=== PATIENT | male | born 1950 | race Caucasian/White ===

== ENCOUNTER 2018-08-28 13:25 | Emergency (ER) | payer MEDICARE ==
[~2018-08-28] VITALS: Ht 175.3 cm; Wt 90.7 kg
--- OUTSIDE RECORDS SUMMARY | 2018-08-28 13:28 | XMS REPORT | Clinical Summary ---
Author Author [facility] Organization [place] Address Unknown Phone Unavailable Care Team Providers Care Video Game Tester Name Role Phone Deion Rosario MD PCP Allergies Comments Active Allergy Reactions Severity Noted Date Severe Vomitting Morphine GI High 01/20/2016 Intolerance Medications End Date Status Medication Sig Dispensed Refills Start Date Active cetirizine (ZyrTEC) 10 MG Take 10 mg by 0 tablet mouth daily as needed. Active PACERONE 400 mg tablet 0 8 Active amLODIPine (NORVASC) 10 0 mg tablet 8 Active atorvastatin (LIPITOR) 40 0 MG tablet 9 Active metoprolol tartrate 0 (LOPRESSOR) 25 mg tablet 9 Active BRILINTA 90 mg tablet 0 9 10/01/2017 Discontinued dextromethorphan-guaifene Take 1 tablet 28 each 0 sin (MUCINEX DM) 30-600 by mouth 2 6 mg tablet extended (two) times a release 12 hr day as needed (congestion post nasal drip). 10/01/2017 Discontinued cetirizine (ZyrTEC) 10 MG Take 10 mg by 0 tablet mouth daily. 09/03/2017 ciprofloxacin (CIPRO) 500 Take 1 tablet 20 tablet 0 MG tablet (500 mg 8 total) by mouth 2 (two) times a day for 10 days. 10/01/2017 Discontinued amLODIPine (NORVASC) 10 Take 1 tablet 30 tablet 0 201 mg tablet (10 mg total) 8 by mouth daily. 10/16/2017 Discontinued amLODIPine (NORVASC) 10 Take 1 tablet 90 tablet 0 mg tablet (10 mg total) 8 by mouth daily. 10/14/2017 Discontinued dextromethorphan-guaifene Take 1 tablet 0 sin (MUCINEX DM REGULAR) by mouth 2 30-600 mg tablet extended (two) times a release 12 hr day. 10/29/2017 Discontinued acetaminophen-codeine Take 1-2 30 tablet 0 (TYLENOL WITH CODEINE #3) tablets by 8 300-30 mg per tablet mouth every 6 (six) hours as needed for moderate pain for up to 30 days. 10/19/2017 ciprofloxacin HCl (CIPRO) Take 1 tablet 14 tablet 0 250 MG tablet (250 mg 8 total) by mouth 2 (two) times a day for 7 days. 11/11/2017 docusate sodium (COLACE) Take 1 60 capsule 0 100 MG capsule capsule (100 8 mg total) by mouth 2 (two) times a day for 30 days. 11/15/2017 amIODarone (PACERONE) 400 Take 1 tablet 30 tablet 0 MG tablet (400 mg 8 total) by mouth daily for 30 days. 11/15/2017 atorvastatin (LIPITOR) 40 Take 1 tablet 30 tablet 0 MG tablet (40 mg total) 8 by mouth nightly for 30 days. 11/15/2017 metoprolol tartrate Take 0.5 30 tablet 0 (LOPRESSOR) 25 mg tablet tablets (12.5 8 mg total) by mouth 2 (two) times a day for 30 days. 11/15/2017 ticagrelor (BRILINTA) 90 Take 1 tablet 60 tablet 0 mg tablet (90 mg total) 8 by mouth 2 (two) times a day for 30 days. 11/15/2017 aspirin (ECOTRIN) 81 MG Take 1 tablet 30 tablet 0 enteric coated tablet (81 mg total) 8 by mouth daily for 30 days. Active Problems Problem Noted Date Malignant neoplasm of ureteric orifice 10/18/2017 BPH without obstruction/lower urinary tract symptoms 10/18/2017 ST elevation myocardial infarction (STEMI) 10/14/2017 Atresia of external auditory canal 10/01/2017 Sensorineural hearing loss (SNHL) of right ear with restricted hearing of 10/01/2017 left ear Seasonal allergic rhinitis 10/01/2017 Bladder mass 09/25/2017 BPH with urinary obstruction 09/25/2017 Gross hematuria 08/24/2017 Essential hypertension 08/24/2017 Erectile dysfunction 08/24/2017 Glucosuria 08/24/2017 Proteinuria 08/24/2017 BMI 30.0-30.9,adult 08/24/2017 Chronic pain of left knee 02/24/2016 Cigarette nicotine dependence without complication 02/24/2016 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 Overview: RLE Resolved Problems Problem Noted Date Resolved Date Elevated blood pressure reading without diagnosis of hypertension 02/24/2016 10/01/2017 Encounters Care Team Description Date Type Specialty Malachi Malcolm MD Malignant neoplasm of ureteric orifice (HCC) (Primary Dx); BPH without obstruction/lower urinary tract symptoms; Cigarette nicotine dependence without complication 07/17/2018 Office Visit Urology Malachi Malcolm MD Malignant neoplasm of ureteric orifice (HCC) (Primary Dx); BPH with urinary obstruction; Gross hematuria; Bladder mass 01/16/2018 Office Visit Urology Deion Rosario MD 01/14/2018 Telephone Family Medicine Deion Rosario MD Bladder mass (Primary Dx); Gross hematuria 01/10/2018 Telephone Family Medicine Malachi Malcolm MD 01/10/2018 Telephone Urology Deion Rosario MD 01/05/2018 Orders Only Family Deion Thompson MD 01/04/2018 Telephone Family Deion Thompson MD 11/06/2017 Telephone Family Medicine Deion Rosario MD ST elevation myocardial infarction involving right coronary artery (Primary Dx); Essential hypertension; Other fatigue; HUBBARD (dyspnea on exertion); Anxiety; Anemia, unspecified type; Hypocalcemia; BMI 30.0-30.9,adult 10/29/2017 Office Visit Family Medicine Malachi Malcolm MD Malignant neoplasm of ureteric orifice (Primary Dx); BPH without obstruction/lower urinary tract symptoms 10/18/2017 Office Visit Urology Kasandra Ta MA 10/15/2017 Telephone Urology Armani Pruitt MD Cv left heart cath w lv gram cors [83306 (CPT)] 10/14/2017 Surgery Procedural Cardiology Emre Galvan MD Teq[place]imuah, Remy, DO ST elevation myocardial infarction (STEMI), unspecified artery (Primary Dx); Chest pain, unspecified type; ST elevation myocardial infarction involving right coronary artery 10/14/2017 Hospital Intensive Care - Encounter 10/16/2017 Malachi Malcolm MD CYSTOSCOPY, WITH TURBT 10/12/2017 Surgery General Surgery Andrea De La Cruz MD 10/12/2017 Anesthesia General Surgery Event Malachi Malcolm MD 10/12/2017 Hospital General Surgery Encounter Malachi Malcolm MD 10/11/2017 Telephone Urology Malachi Malcolm MD 10/09/2017 Hospital Radiology Encounter Malachi Malcolm MD Preop testing (Primary Dx) 10/09/2017 Pre-Admit Pre-Admission Testing Testing Appointment Malachi Malcolm MD 10/09/2017 Telephone Urology Malachi Malcolm MD 10/08/2017 Telephone Urology Deion Rosario MD Routine check-up (Primary Dx); Essential hypertension; Bladder mass; Cigarette nicotine dependence without complication; Post-polio limb muscle weakness; Chronic pain of left knee; Gross hematuria; Erectile dysfunction, unspecified erectile dysfunction type; BPH with urinary obstruction; BMI 30.0-30.9,adult; Seasonal allergic rhinitis due to other allergic trigger, unspecified chronicity; Sensorineural hearing loss (SNHL) of right ear with restricted hearing of left ear; Atresia of external auditory canal 10/01/2017 Office Visit Family Medicine Malachi Malcolm MD 09/28/2017 Telephone Urology Deion Rosario MD Rodriguez, Gabriel, MD Erectile dysfunction, unspecified erectile dysfunction type (Primary Dx); Bladder mass; Gross hematuria; BPH with urinary obstruction 09/25/2017 Office Visit Urology Deion Rosario MD Gross hematuria 09/07/2017 Hospital Radiology Encounter Deion Rosario MD Bladder mass (Primary Dx); Gross hematuria 09/07/2017 Orders Only Family Medicine Alessandra Jaramillo MA 09/05/2017 Telephone Internal Medicine Janie Rascon MA 08/27/2017 Telephone Family Medicine after 08/27/2017 Immunizations Name Dates Previously Given Next Due FLUZONE HIGH-DOSE PF 01/20/2016 Family History Medical History Relation Name Comments No Known Problems Father No Known Problems Mother Relation Name Status Comments Father Mother Social History Date Tobacco Use Types Packs/Day Years Used Current Every Day Smoker Cigarettes 1 20 Smokeless Tobacco: Never Used Tobacco Cessation: Ready to Quit: No Comments: had quit for 10 yrs Alcohol Use Drinks/Week oz/Week Comments Yes beer socially Sex Assigned at Date Recorded Not on file Industry Job Start Date Occupation Not on file Not on file Not on file Travel End Travel History Travel Start No recent travel history available. Last Filed Vital Signs Time Taken Vital Sign Reading 10/29/2017 2:04 PM CDT Blood Pressure 118/68 10/29/2017 2:04 PM CDT Pulse 69 10/29/2017 2:04 PM CDT Temperature 36.3 C (97.3 F) 10/29/2017 2:04 PM CDT Respiratory Rate 18 10/29/2017 2:04 PM CDT Oxygen Saturation 99% - Inhaled Oxygen - Concentration 10/29/2017 2:04 PM CDT Weight 93 kg (205 lb) 10/29/2017 2:04 PM CDT Height 175.3 cm (5' 9") 10/29/2017 2:04 PM CDT Body Mass Index 30.27 Plan of Treatment Care Team Description Date Type Specialty Malachi Malcolm MD [address] [facility] [address] [place], [place] [id number] 10/22/2018 Office Visit Urology Health Maintenance Due Date Last Done Comments COLON CANCER SCREENING 1999 SHINGLES VACCINES (#1) 1999 65+ PNEUMOCOCCAL VACCINE 2014 (1 of 2 - PCV13) PNEUMOCOCCAL 2014 POLYSACCHARIDE VACCINE AGE 65 AND OVER INFLUENZA VACCINE 11/07/2018 01/20/2016, 01/20/2016 Implants Device Identifier Shelf Expiration Date Model / Serial / Lot Implanted Type Area Manufactur er 07/07/2018 [id number] / / [id number] Device Vasclr Clsr Vasoactive Cardiovasc N/A: N/A Intstnl Peptd 6fr Angio-Seal - ular [id number] Implants Implanted: Qty: 1 on 10/14/2017 by Armani Pruitt MD 06/05/2018 [id number] / / [id number] Stent System 4.0 X 18mm Resolute Coronary Left: Coronary [employer] Rx Coronary - [id number] Stents [facility] - Implanted: Qty: 1 on 10/14/2017 by CARDIAC Armani Pruitt MD RYHTYM MGMT Procedures Comments Procedure Name Priority Date/Time Associated Diagnosis ZZESTIMATED GFR Routine 10/16/2017 5:15 AM CDT HEMOGLOBIN A1C Routine 10/16/2017 5:15 AM CDT THYROID STIMULATING Routine 10/16/2017 HORMONE 5:15 AM CDT T4, FREE Routine 10/16/2017 5:15 AM CDT PHOSPHORUS LEVEL Routine 10/16/2017 5:15 AM CDT MAGNESIUM LEVEL Routine 10/16/2017 5:15 AM CDT BASIC METABOLIC PANEL Routine 10/16/2017 5:15 AM CDT HC COMPLETE BLD COUNT Routine 10/16/2017 W/AUTO DIFF 5:15 AM CDT ECHOCARDIOGRAM 2D Routine 10/15/2017 COMPLETE W MMODE SPECTRAL 9:10 AM CDT COLOR DOPPLER ([id number]) ZZESTIMATED GFR Timed 10/15/2017 4:10 AM CDT COMPREHENSIVE METABOLIC Timed 10/15/2017 PANEL 4:10 AM CDT HC COMPLETE BLD COUNT Timed 10/15/2017 W/AUTO DIFF 4:10 AM CDT TROPONIN Timed 10/15/2017 4:10 AM CDT LACTIC ACID LEVEL, SEPSIS Timed 10/15/2017 - NOW AND REPEAT 2X EVERY 4:10 AM CDT 3 HOURS PARTIAL THROMBOPLASTIN Routine 10/15/2017 TIME (PTT) 4:10 AM CDT PROTHROMBIN TIME WITH INR Routine 10/15/2017 4:10 AM CDT URINALYSIS SCREEN AND STAT 10/14/2017 MICROSCOPY, WITH REFLEX 11:15 PM CDT TO CULTURE GRAM STAIN STAT 10/14/2017 11:15 PM CDT URINE CULTURE STAT 10/14/2017 11:15 PM CDT ZZESTIMATED GFR Routine 10/14/2017 10:45 PM CDT HC COMPLETE BLD COUNT Routine 10/14/2017 W/AUTO DIFF 10:45 PM CDT BASIC METABOLIC PANEL Routine 10/14/2017 10:45 PM CDT TROPONIN Timed 10/14/2017 10:45 PM CDT LACTIC ACID LEVEL, SEPSIS Timed 10/14/2017 - NOW AND REPEAT 2X EVERY 10:45 PM CDT 3 HOURS CV PCI STENT Routine 10/14/2017 9:12 PM CDT CV SELECTIVE CORONARY Routine 10/14/2017 ANGIOGRAPHY 9:12 PM CDT ACTIVATED CLOTTING TIME Routine 10/14/2017 8:12 PM CDT XR CHEST 1 VW PORTABLE STAT 10/14/2017 7:09 PM CDT TYPE AND SCREEN Routine 10/14/2017 6:50 PM CDT ZZESTIMATED GFR STAT 10/14/2017 6:47 PM CDT LIPID PANEL STAT 10/14/2017 6:47 PM CDT HEMOGLOBIN A1C Routine 10/14/2017 6:47 PM CDT CREATINE KINASE, TOTAL STAT 10/14/2017 (CPK) 6:47 PM CDT B NATRIURETIC PEPTIDE STAT 10/14/2017 6:47 PM CDT TROPONIN STAT 10/14/2017 6:47 PM CDT LACTIC ACID LEVEL, SEPSIS STAT 10/14/2017 - NOW AND REPEAT 2X EVERY 6:47 PM CDT 3 HOURS COMPREHENSIVE METABOLIC STAT 10/14/2017 PANEL 6:47 PM CDT MAGNESIUM LEVEL STAT 10/14/2017 6:47 PM CDT PHOSPHORUS LEVEL STAT 10/14/2017 6:47 PM CDT HC COMPLETE BLD COUNT STAT 10/14/2017 W/AUTO DIFF 6:47 PM CDT ECG 12-LEAD STAT 10/14/2017 6:40 PM CDT ECG ED PRELIMINARY Routine 10/14/2017 INTERPRETATION 6:39 PM CDT ECG ED PRELIMINARY Routine 10/14/2017 INTERPRETATION 6:39 PM CDT MI CRITICAL CARE, E/M Routine 10/14/2017 30-74 MINUTES 6:39 PM CDT ECG 12-LEAD STAT 10/14/2017 6:28 PM CDT SURGICAL PATHOLOGY Routine 10/12/2017 REQUEST 11:38 AM CDT CYSTOSCOPY, WITH TURBT 10/12/2017 Malignant tumor of 11:20 AM CDT trigone of urinary bladder MI AN ELECTIVE Routine 10/12/2017 SUPRAGLOTTIC AIRWAY 11:09 AM CDT Procedure Note - Andrea De La Cruz MD - 10/12/2017 11:09 AM CDT Airway Performed by: ANDREA DE LA CRUZ Authorized by: ANDREA DE LA CRUZ Location: OR Urgency: Elective Difficult Airway: No Anesthesio logist: ANDREA DE LA CRUZ Performed by: anesthesio logist Preoxygena tomasa with 100% O2: Yes C-spine Precaution s Maintained Throughout : Yes Mask Ventilatio n: Assisted mask Final Airway Type: Supraglott ic airway Final LMA: Classic LMA Size: 5 Number of Attempts at Approach: 1 XR CHEST 2 VW Routine 10/09/2017 Preop testing 10:08 AM CDT HC COMPLETE BLD COUNT Routine 10/09/2017 Preop testing W/AUTO DIFF 9:35 AM CDT ECG 12-LEAD Routine 10/01/2017 Essential hypertension 9:08 AM CDT MICROSCOPIC EXAMINATION Routine 09/25/2017 3:16 PM CDT URINALYSIS, COMPLETE, Routine 09/25/2017 Bladder mass WITH REFLEX TO CULTURE 3:16 PM CDT Gross hematuria URINE CULTURE, Routine 09/25/2017 COMPREHENSIVE (GELY 3:16 PM CDT HIST) CT RENAL STONE PROTOCOL Routine 09/07/2017 Gross hematuria 9:08 AM CDT TESTOSTERONE LEVEL, FREE Routine 08/29/2017 Erectile dysfunction, AND TOTAL, MALE 7:49 AM CDT unspecified erectile dysfunction type TSH REFLEX TO T4F Routine 08/29/2017 Erectile dysfunction, 7:49 AM CDT unspecified erectile dysfunction type PROSTATE SPECIFIC ANTIGEN Routine 08/29/2017 Gross hematuria 7:49 AM CDT LIPID PANEL Routine 08/29/2017 Essential hypertension 7:49 AM CDT COMPREHENSIVE METABOLIC Routine 08/29/2017 Gross hematuria PANEL 7:49 AM CDT CBC WITH PLATELET AND Routine 08/29/2017 Gross hematuria DIFFERENTIAL 7:49 AM CDT after 08/27/2017 Results * Estimated GFR (10/16/2017 5:15 AM CDT) Only the most recent of 4 results within the time period is included. GFR Non Af Amer 66 mL/min/1.73 m2 [facility] DEPARTMENT OF PATHOLOGY AND GENOMIC MEDICINE GFR Af Amer 81 mL/min/1.73 m2 [facility] Comment: DEPARTMENT OF Chronic kidney disease: <60 PATHOLOGY AND mL/min/1.73m2 GENOMIC Kidney failure: <15 MEDICINE mL/min/1.73m2 The estimated GFR is calculated from the IDMS-traceable Modification of Diet in Renal Disease Equation. The accuracy of the calculation is poor when the creatinine is normal. Calculated values >90 mL/min/1.73m2 are not reported. This equation has not been validated in children (<18 years), women, the elderly (>70 years), or ethnic groups other than Caucasians and Americans. Specimen Plasma specimen Performing Organization Address City/State/Zipcode Phone Number [facility] [address] [place] [address] PATHOLOGY AND GENOMIC MEDICINE * CBC with platelet and differential (10/16/2017 5:15 AM CDT) Only the most recent of 6 results within the time period is included. WBC 13.07 (H) 4.50 - 11.00 k/uL [facility] DEPARTMENT OF PATHOLOGY AND GENOMIC MEDICINE RBC 2.98 (L) 4.40 - 6.00 m/uL [facility] DEPARTMENT PATHOLOGY AND GENOMIC MEDICINE HGB 8.7 (L) 14.0 - 18.0 g/dL [facility] DEPARTMENT OF PATHOLOGY AND GENOMIC MEDICINE HCT 26.4 (L) 41.0 - 51.0 % [facility] DEPARTMENT OF PATHOLOGY AND GENOMIC MEDICINE MCV 88.6 82.0 - 100.0 fL [facility] DEPARTMENT OF PATHOLOGY AND GENOMIC MEDICINE MCH 29.2 27.0 - 34.0 pg [facility] DEPARTMENT OF PATHOLOGY AND GENOMIC MEDICINE MCHC 33.0 31.0 - 37.0 g/dL [facility] DEPARTMENT OF PATHOLOGY AND GENOMIC MEDICINE RDW - SD 44.0 37.0 - 55.0 fL [facility] DEPARTMENT OF PATHOLOGY AND GENOMIC MEDICINE MPV 9.9 8.8 - 13.2 fL [facility] DEPARTMENT OF PATHOLOGY AND GENOMIC MEDICINE Platelet count 333 150 - 400 k/uL [facility] DEPARTMENT OF PATHOLOGY AND GENOMIC MEDICINE Nucleated RBC 0.00 /100 WBC [facility] DEPARTMENT OF PATHOLOGY AND GENOMIC MEDICINE Neutrophils 71.1 (H) 39.0 - 69.0 % [facility] DEPARTMENT OF PATHOLOGY AND GENOMIC MEDICINE Lymphocytes 16.8 (L) 25.0 - 45.0 % [facility] DEPARTMENT OF PATHOLOGY AND GENOMIC MEDICINE Monocytes 9.5 0.0 - 10.0 % [facility] DEPARTMENT OF PATHOLOGY AND GENOMIC MEDICINE Eosinophils 1.5 0.0 - 5.0 % [facility] DEPARTMENT OF PATHOLOGY AND GENOMIC MEDICINE Basophils 0.6 0.0 - 1.0 % [facility] DEPARTMENT OF PATHOLOGY AND GENOMIC MEDICINE Specimen Blood Performing Organization Address City/State/Zipcode Phone Number [address] [place] [address] PATHOLOGY AND GENOMIC MEDICINE * Thyroid stimulating hormone (10/16/2017 5:15 AM CDT) TSH 2.21 0.27 - 4.20 uIU/mL [facility] DEPARTMENT OF PATHOLOGY AND GENOMIC MEDICINE Specimen Plasma specimen Performing Organization Address [facility] Phone Number [address] [place] [address] PATHOLOGY AND GENOMIC MEDICINE * T4, free (10/16/2017 5:15 AM CDT) T4, free 1.42 0.90 - 1.70 ng/dL [facility] DEPARTMENT OF PATHOLOGY AND GENOMIC MEDICINE Specimen Plasma specimen Performing Organization Address [facility] Phone Number [address] [place] [address] PATHOLOGY AND GENOMIC MEDICINE * Phosphorus level (10/16/2017 5:15 AM CDT) Only the most recent of 2 results within the time period is included. Phosphorus 2.3 (L) 2.4 - 4.5 mg/dL [facility] DEPARTMENT OF PATHOLOGY AND GENOMIC MEDICINE Specimen Plasma specimen Performing Organization Address [facility] Phone Number [address] [place] [address] PATHOLOGY AND GENOMIC MEDICINE * Magnesium level (10/16/2017 5:15 AM CDT) Only the most recent of 2 results within the time period is included. Magnesium 2.2 1.6 - 2.4 mg/dL [facility] DEPARTMENT OF PATHOLOGY AND GENOMIC MEDICINE Specimen Plasma specimen Performing Organization Address [facility] Phone Number [address] [place] [address] PATHOLOGY AND GENOMIC MEDICINE * Hemoglobin A1c (10/16/2017 5:15 AM CDT) Only the most recent of 2 results within the time period is included. Hemoglobin A1C 4.4 4.0 - 6.0 % [facility] Comment: DEPARTMENT OF PATHOLOGY AND GENOMIC Less than 6% - MEDICINE Goal of therapy for Type II Diabetes Less than 7%-Goal of therapy for Type I Diabetes Less than 8%-Accepta ble control for Type I or Type II Diabetes Greater than 8%-Unacceptabl e control; action indicated. (ADA94) Specimen Blood Performing Organization Address [facility]/[employer] Phone Number [address] [place] [address] PATHOLOGY [facility] * Basic metabolic panel (10/16/2017 5:15 AM CDT) Only the most recent of 2 results within the time period is included. Sodium 140 135 - 148 mEq/L [facility] DEPARTMENT OF PATHOLOGY AND [employer] MEDICINE Potassium 4.1 3.5 - 5.0 mEq/L [facility] DEPARTMENT OF PATHOLOGY AND [employer] MEDICINE Chloride 108 98 - 112 mEq/L [facility] DEPARTMENT OF PATHOLOGY AND [employer] MEDICINE CO2 21 (L) 24 - 31 mEq/L [facility] DEPARTMENT OF PATHOLOGY [facility] [employer] [facility] Anion gap 11@ANIO 7 - 15 mEq/L [facility] DEPARTMENT OF PATHOLOGY AND [employer] MEDICINE BUN 9 8 - 23 mg/dL [facility] DEPARTMENT OF PATHOLOGY AND [employer] MEDICINE Creatinine 1.1 0.7 - 1.2 mg/dL [facility] OF PATHOLOGY AND [employer] [facility] Glucose 89 65 - 99 mg/dL [facility] OF PATHOLOGY AND [employer] [facility] Calcium 8.3 (L) 8.8 - 10.2 mg/dL [facility] DEPARTMENT OF PATHOLOGY AND [employer] [facility] Specimen Plasma specimen Performing Organization Address [facility] Phone Number [address] [place] [phone] PATHOLOGY [facility] [employer] [facility] * Echocardiogram complete w contrast and 3D if needed (10/15/2017 9:10 AM CDT) BSA 2.12 m2 [facility] AoV Area, Vmax 2.26 cm2 [facility] AoV Area, VTI 2.51 cm2 [facility] AoV Mean PG 4.68 mmHg [facility] AoV Peak PG 10.22 mmHg [facility] AoV Vmax 1.60 m/s [facility] AoV VTI 0.29 m [facility] IVS,d 1.18 cm [facility] LV,d 4.77 cm [facility] LV EF,A2C 53.75 % [facility] LV EF,A4C 51.07 % [facility] LV EF,BP 52.78 % [facility] [place],d A2C 9.04 cm [facility] [place],d A4C 9.56 cm [facility] [place],s A2C 7.43 cm [facility] [place],s A4C 7.69 cm [facility] LV,s 3.50 cm [facility] LV SV,A2C 81.58 % [facility] LV SV,A4C 76.41 % [facility] LV Vol,d A2C 151.76 mL [facility] LV Vol,d A4C 149.61 ml [facility] LV Vol,d BP 154.25 ml [facility] LV Vol,s A2C 70.18 mL [facility] LV Vol,s A4C 73.20 ml [facility] LV Vol,s BP 72.84 nl [facility] LVOT Diam,S 2.00 cm [facility] LVOT Vmax 1.15 m/s [facility] LVOT VTI 0.24 m [facility] LVPWD,d 1.04 cm [facility] MV E A ratio 0.78 mmHg [facility] MR Vmax 4.10 m/s [facility] MR peak grad 67.30 mmHg [facility] E wave 227.63 msec [facility] decelartion time MV Peak A Gerry 1.02 m/s [facility] MV valve area p 3.27 cm2 [facility] 1/2 method MV Peak E Gerry 0.80 m/s [facility] MV stenosis 67.30 ms [facility] pressure 1/2 time AV LVOT peak 5.30 mmHg [facility] gradient LV SYS VOL 50.82 ml [facility] LV LAND VOL 105.89 ml [facility] LV SV Teich 2D 55.06 ml [facility] LVOT SI 35.62 ml/m2 [facility] AoV Cusp sep 1.55 [facility] AoV Vmn 0.99 [facility] IVS s 2D 1.49 [facility] LA Ao Ratio 1.06 [facility] Mmode LVOT Vmn 0.69 [facility] Pt Size 175.26 [facility] Pt Wt 92.08 [facility] PV AT 138.41 msec [facility] LVOT mean grad 2.24 mmHg [facility] LVPW s PLAX 1.51 cm [facility] MV Decel slope 3.49 m/s2 [facility] Velocity Ratio 0.72 m/s [facility] (V1/V2) EF 52.01 % [facility] E/A ratio 0.78 [facility] LVOT area 3.14 cm2 [facility] LV Systolic 33.10 mL/m2 [facility] Volume Index LV Diastolic 71.58 mL/m2 [facility] Volume Index LA volume 106.0 cm3 [facility] LA Volume Index 50.00 mL/m2 [facility] LA Area d A4C 61 cm2 [facility] LA diam s 3.40 cm [facility] Aortic Root 3.24 cm [facility] D E excurs 1.80 [facility] E f slope 0.05 [facility] E prime lat 0.11 [facility] E katie sept 0.09 [facility] PV acc T slope 6.30 [facility] IVC diam 16.50 cm [facility] Specimen Narrative Performed At [facility] The left ventricle chamber size is normal. Left Ventricular ejection fraction is 55 - 60%. No pericardial effusion Spectral Doppler shows impaired relaxation pattern of left ventricular diastolic filling. Regional wall motion abn noted. Performing Organization Address City/[facility]/Zipcode Phone Number [facility] [address] [place] [address] * Lactic acid level, SEPSIS - Now and repeat 2x every 3 hours (10/15/2017 4:10 AM CDT) Only the most recent of 3 results within the time period is included. Lactic acid 0.8 0.5 - 2.2 mmol/L [facility] DEPARTMENT OF PATHOLOGY AND GENOMIC MEDICINE Specimen Plasma specimen Performing Organization Address City/[facility]/Zipcode Phone Number [facility] [place] [address] [place] [address] PATHOLOGY AND GENOMIC MEDICINE * Troponin (10/15/2017 4:10 AM CDT) Only the most recent of 3 results within the time period is included. Troponin 37.410 (HH) 0.000 - 0.300 ng/mL [facility] Comment: DEPARTMENT OF 0.30 - 1.49 PATHOLOGY AND ng/mlMay GENOMIC indicate increased risk of MEDICINE acute coronary syndrome. >=1.5 ng/ml Consistent with acute myocardial infarction. The diagnostic value of a single normal or non-diagnostic result is questionable.Serial samples at 2-6 hour intervals are required to rule out acute myocardial injury. Results called to and read back by July RN/ICU (name/location) at 0504 (date/time) by __surendra. Specimen Plasma specimen Performing Organization Address [facility]/[employer] Phone Number [facility] DEPARTMENT [address] [place] [address] PATHOLOGY AND GENOMIC MEDICINE * Partial thromboplastin time, activated (10/15/2017 4:10 AM CDT) Pathologist [facility] PTT 25.8 23.0 - 36.0 sec [facility] Comment: DEPARTMENT OF PTT therapeutic range for PATHOLOGY AND unfractionated heparin is GENOMIC 61.0-112.0 seconds which MEDICINE corresponds to Anti-Xa 0.3-0.7 U/ml. Specimen Blood Performing Organization Address [facility] Phone Number [address] [place] [address] PATHOLOGY AND GENOMIC MEDICINE * Prothrombin time with INR (10/15/2017 4:10 AM CDT) Pathologist [facility] Prothrombin 13.6 12.0 - 15.0 sec [facility] time DEPARTMENT OF PATHOLOGY AND GENOMIC MEDICINE INR 1.0 [facility] Comment: DEPARTMENT OF The International Normalized PATHOLOGY AND Ratio (INR) is a therapeutic GENOMIC monitoring tool for patients MEDICINE who are stable on oral anticoagulant therapy. An INR of 2.0-3.0 is suggested for deep vein thrombosis/pulmonary embolism. Specimen Blood Performing Organization Address [facility] Phone Number [facility] DEPARTMENT [address] [place] [address] PATHOLOGY AND GENOMIC MEDICINE * Comprehensive metabolic panel (10/15/2017 4:10 AM CDT) Only the most recent of 3 results within the time period is included. Pathologist [facility] Sodium 140 135 - 148 mEq/L [facility] DEPARTMENT OF PATHOLOGY AND GENOMIC MEDICINE Potassium 3.3 (L) 3.5 - 5.0 mEq/L [facility] DEPARTMENT OF PATHOLOGY AND GENOMIC MEDICINE Chloride 107 98 - 112 mEq/L [facility] DEPARTMENT OF PATHOLOGY AND GENOMIC MEDICINE CO2 23 (L) 24 - 31 mEq/L [facility] DEPARTMENT OF PATHOLOGY AND GENOMIC MEDICINE Anion gap 10@ANIO 7 - 15 mEq/L [facility] DEPARTMENT OF PATHOLOGY AND GENOMIC MEDICINE BUN 8 8 - 23 mg/dL [facility] DEPARTMENT OF PATHOLOGY AND GENOMIC MEDICINE Creatinine 0.9 0.7 - 1.2 mg/dL [facility] DEPARTMENT OF PATHOLOGY AND GENOMIC MEDICINE Glucose 98 65 - 99 mg/dL [facility] DEPARTMENT OF PATHOLOGY AND GENOMIC MEDICINE Calcium 8.2 (L) 8.8 - 10.2 mg/dL [facility] DEPARTMENT OF PATHOLOGY AND GENOMIC MEDICINE Protein 5.6 (L) 6.3 - 8.3 g/dL [facility] Comment: DEPARTMENT OF [place] PATHOLOGY AND 4.6-7.0 g/dL [place] [address] MEDICINE week 4.4-7.6 g/dL 7 months-1year 5.1-7.3 g/dL 1-2 years5.6-7 .5 g/dL >3 years6.0-8 .0 g/dL 18-150 6.3-8.3 g/dL Albumin 3.6 3.5 - 5.0 g/dL [facility] DEPARTMENT OF PATHOLOGY AND GENOMIC MEDICINE A/G ratio 1.8 0.7 - 3.8 [facility] DEPARTMENT OF PATHOLOGY AND GENOMIC MEDICINE Alkaline 76 40 - 129 U/L [facility] phosphatase DEPARTMENT OF PATHOLOGY AND GENOMIC MEDICINE AST 83 (H) 10 - 50 U/L [facility] DEPARTMENT OF PATHOLOGY AND GENOMIC MEDICINE ALT 17 5 - 50 U/L [facility] DEPARTMENT OF PATHOLOGY AND GENOMIC MEDICINE Total bilirubin 0.4 0.0 - 1.2 mg/dL [facility] DEPARTMENT OF PATHOLOGY AND GENOMIC MEDICINE Specimen Plasma specimen Performing Organization Address City/State/Zipcode Phone [place] [facility] [place] [place] [address] [place] [address] PATHOLOGY AND GENOMIC MEDICINE * Urinalysis screen and microscopy, with reflex to culture (10/14/2017 11:15 PM CDT) Specimen site Clean catch [facility] DEPARTMENT OF PATHOLOGY AND GENOMIC MEDICINE Color, UA Straw [facility] DEPARTMENT OF PATHOLOGY AND GENOMIC MEDICINE Appearance, UA Clear [facility] DEPARTMENT OF PATHOLOGY AND GENOMIC MEDICINE Specific 1.030 1.001 - 1.035 [facility] gravity, DEPARTMENT OF PATHOLOGY AND GENOMIC MEDICINE pH, UA 7.0 5.0 - 8.5 [facility] DEPARTMENT OF PATHOLOGY AND GENOMIC MEDICINE Protein, UA Negative Negative [facility] DEPARTMENT OF PATHOLOGY AND GENOMIC MEDICINE Glucose, UA Negative Negative [facility] DEPARTMENT OF PATHOLOGY AND GENOMIC MEDICINE Ketones, UA Negative Negative [facility] DEPARTMENT OF PATHOLOGY AND GENOMIC MEDICINE Bilirubin, UA Negative Negative [facility] DEPARTMENT OF PATHOLOGY AND GENOMIC MEDICINE Blood, UA Moderate (A) Negative [facility] DEPARTMENT OF PATHOLOGY AND GENOMIC MEDICINE Nitrite, UA Negative Negative [facility] DEPARTMENT OF PATHOLOGY AND GENOMIC MEDICINE Urobilinogen, Negative <2.0 [facility] DEPARTMENT OF PATHOLOGY AND GENOMIC MEDICINE Leukocyte Small (A) Negative [facility] esterase, UA DEPARTMENT OF PATHOLOGY AND GENOMIC MEDICINE WBC, UA 6-10 (H) 0 - 1 /HPF [facility] DEPARTMENT OF PATHOLOGY AND GENOMIC MEDICINE RBC, UA 11-20 (H) 0 - 5 /HPF [facility] DEPARTMENT OF PATHOLOGY AND GENOMIC MEDICINE Bacteria, UA None seen None seen [facility] DEPARTMENT OF PATHOLOGY AND GENOMIC MEDICINE Yeast, UA None seen [facility] DEPARTMENT OF PATHOLOGY AND GENOMIC MEDICINE Yeast with None seen [facility] pseudohyphae, DEPARTMENT OF PATHOLOGY AND GENOMIC MEDICINE Specimen Urine Performing Organization Address City/[facility]/Zipcode Phone Number [facility] DEPARTMENT [id number] [place] [address] [place] [address] PATHOLOGY AND GENOMIC MEDICINE * Gram stain (10/14/2017 11:15 PM CDT) Gram stain No WBC's or organisms seen. [facility] DEPARTMENT result Comment: OF PATHOLOGY Specimen Information AND GENOMIC Specimen Source: Urine MEDICINE Specimen Site: Clean catch Specimen Urine Performing Organization Address City/[facility]/Zipcode Phone Number [facility] DEPARTMENT OF [address] [place] [address] PATHOLOGY AND GENOMIC MEDICINE * Urine culture (10/14/2017 11:15 PM CDT) Urine culture No growth after 2 days. 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 Procedure Details After informed consent patient was brought in to the mason tender restoration labor and was prepped and draped in a sterile fashion. Under moderate sedation and under local anesthesia a 6F sheath was placed into the common femoral artery using modified Seldinger technique. A 6F JL4 diagnostic catheter was advanced over a J wire and LM was engaged. Serial angiogram were performed. The JL4 was removed over a J-wire. A 6F 3 DRC guide catheter catheter was advanced and RCA was engaged. Serial coronary angiograms were performed.The 3DRC catheter was removed over a J wire. As no culprit lesion was found of the decided to go back with the JL4 of guide catheter and redo in examination of the left system with serial angiograms. The JL 46 Iranian guide catheter was advanced over a J-wire, left main was engaged and serial coronary angiograms were performed. Findings: LM: Short. Normal LAD:Large. Normal. Small diagonals LCX: Large, Co dominant. Continues as a very large OM1. Proximal OM had luminal irregularities. Examination in multiple views showed an ulcerated lesion diffuse 40 % with focal 50% RCA: Co -Dominanat, normal. Gives rise to small PDA Intervention: During the initial angiogram there was no culprit lesion was identified. All the major muscles had VAL-3 flow. Hence the code STEMI was canceled. Subsequently the exam in the proximal Tim lesion in multiple views. And there was a strong possibility was an ulcerated lesion. And this ulcerated lesion potentially had a thrombus which subsequently resolved. Hence the is admitted to go ahead and stent this particular lesion. After adequate anticoagulation with heparin, of the advanced of short intuition wire into the circumflex through the Tim 1 into the distal Tim. Of the predilated the lesion with 2.5 1 2 followed by 3 mm 1 2 balloon lungs. The balloon was dilated to maximum of 3.3mm. Following this the advanced Medtronic RONYXdrug-eluting stent 4 mm 1 8 mm and deployed at at the lesion extending into the LCX arteryat nominal pressure. Postdilatation of the lesion was done with the stent balloon itself. And the extent of this stent position was obtained angiographically. The wire and the stent delivery system was removed final angiogram was done showing excellent results. And the catheter was taken out. Just above this time patient went into ventricular fibrillation and received defibrillation with 200 J biphasic shock. This put him back on sinus rhythm. Patient was loaded with amiodarone. They've been back with of 6 Iranian JL4 guide catheter to repeat angiogram of the left system. And this did not show any new lesions. And the stent was opposed well. All the vessel which showed VAL-3 flow. The catheter was removed over a J-wire. Of 6 Iranian 3 DRC guide catheter was advanced over a J-wire and RCA angiogram was performed is again did not show any abnormalities. A limited femoral angiogram was performed. And the arterial puncture site was closed with 6 Iranian adjusted. Good hemostasis was obtained Pre-op Diagnosis: * No pre-op diagnosis entered * * No Diagnosis Codes entered * Surgeon(s) and Role: * Armani Pruitt MD - Primary Anesthesia: Anesthesia type not filed in the log. Blood Products Administered: Estimated Blood Loss: 25 ML. Sheath/IV: Specimens: Grafts/Implants: Implant Name Type Inv. Item Serial No. Medical Coding Specialist Lot No. LRB No. Used Action STENT SYSTEM 4.0 X 18MM RESOLUTE DEMETRIS RX CORONARY - [id number] Coronary Stents STENT SYSTEM 4.0 X 18MM RESOLUTE DEMETRIS RX CORONARYMEDTRONIC [facility] - CARDIAC RYHTYM MGMT [id number] Left 1 Implanted DEVICE VASCLR CLSR VASOACTIVE INTSTNL PEPTD 6FR ANGIO-SEAL - [id number] Cardiovascular Implants DEVICE VASCLR CLSR VASOACTIVE INTSTNL PEPTD 6FR ANGIO-SEAL [id number] N/A 1 Implanted Impression: 1. Acute ND by EKG/Clinical criteria - However diagnostic angiogram showed all major vessels with VAL 3 flow . No flow limiting lesions were found. STEMI code was canceled. 2. OM1 had ulcerated 50% lesion , which could have earlier harbored a thrombus. Considering the morphology of the lesion OM1 was stented. 3 Vib cardiac arrest in the mason tender restoration labor - Dfib , 200 J x 1. Amio loading Armani Pruitt MD Date: 10/14/2017Time: 8:40 PM Performing Organization Address City/State/Zipcode Phone Number [facility] [address] [place] [address] * Activated clotting time (10/14/2017 8:12 PM CDT) Activated 225.0 (H)Comment: test 74.0 - 125.0 sec [facility] clotting time performed by [id number] DEPARTMENT OF PATHOLOGY AND GENOMIC MEDICINE Specimen Performing Organization Address [facility] Phone Number [address] [place] [address] PATHOLOGY AND GENOMIC MEDICINE * XR Chest 1 Vw Portable (10/14/2017 7:09 PM CDT) Specimen Narrative Performed At EXAMINATION:XR CHEST 1 VW PORTABLE [facility] CLINICAL HISTORY: chest pain COMPARISON:10/09/2017 IMPRESSION: No radiographic evidence for acute cardiopulmonary process. Cardiomediastinal silhouette is within normal limits of size. No focal or confluent airspace consolidation is seen to suggest acute pneumonia. No sizable pleural effusion. No pneumothorax identified. No acute osseous abnormalities are visualized. [facility]-[id number] Procedure Note Hm Interface, Radiology Results Incoming - 10/14/2017 7:13 PM CDT EXAMINATION: XR CHEST 1 VW PORTABLE CLINICAL HISTORY: chest pain COMPARISON: 10/09/2017 IMPRESSION: No radiographic evidence for acute cardiopulmonary process. Cardiomediastinal silhouette is within normal limits of size. No focal or confluent airspace consolidation is seen to suggest acute pneumonia. No sizable pleural effusion. No pneumothorax identified. No acute osseous abnormalities are visualized. [facility]-[id number] Performing Organization Address [facility]/Zipcode Phone Number [facility] [address] [place] [address] * Type and screen (10/14/2017 6:50 PM CDT) ABO grouping O [facility] DEPARTMENT OF PATHOLOGY AND GENOMIC MEDICINE Rh type POS [facility] DEPARTMENT OF PATHOLOGY AND GENOMIC MEDICINE Antibody screen NEG [facility] DEPARTMENT OF PATHOLOGY AND GENOMIC MEDICINE Specimen Blood Performing Organization Address [facility]/Zipcode Phone Number [facility] DEPARTMENT [address] [place] [address] PATHOLOGY AND GENOMIC MEDICINE * B natriuretic peptide (10/14/2017 6:47 PM CDT) BNP 39 0 - 100 pg/mL [facility] DEPARTMENT OF PATHOLOGY AND GENOMIC MEDICINE Specimen Blood Performing Organization Address [facility] Phone Number [address] [place] [address] PATHOLOGY AND GENOMIC MEDICINE * Creatine kinase, total (CPK) (10/14/2017 6:47 PM CDT) Creatine kinase 77 39 - 308 U/L [facility] DEPARTMENT OF PATHOLOGY AND GENOMIC MEDICINE Specimen Plasma specimen Performing Organization Address City/[facility] Phone Number [facility] DEPARTMENT [address] [place] [address] PATHOLOGY AND GENOMIC MEDICINE * Lipid panel (10/14/2017 6:47 PM CDT) Only the most recent of 2 results within the time period is included. Cholesterol 110 <200 mg/dL [facility] DEPARTMENT OF PATHOLOGY AND GENOMIC MEDICINE Triglycerides 73 <150 mg/dL [facility] DEPARTMENT OF PATHOLOGY AND GENOMIC MEDICINE HDL cholesterol 47 >40 mg/dL [facility] DEPARTMENT OF PATHOLOGY AND GENOMIC MEDICINE LDL cholesterol 61Comment: Result obtained by <100 mg/dL [facility] direct LDL measurement DEPARTMENT OF PATHOLOGY AND GENOMIC [facility] Lipid panel SeeBelow [facility] interpretation Comment: DEPARTMENT OF Total Cholesterol PATHOLOGY AND (mg/dL) GENOMIC <200 MEDICINE Desirable 200-239Borderline -high >=240High Triglycerides (mg/dL) <150 Normal 150-199Borderline -high 200-499High >=500Very high HDL Cholesterol (mg/dL) <40Low (male) <40Low (female) LDL Cholesterol (mg/dL) <100 Optimal 100-129Near or above optimal 130-159Borderline -high 160-189High >=190Very high Risk Catergories that modify LDL goals. Risk Catergories LDL goal (mg/dL) CHD and CHD risk equivalent<100 (10-year risk >20%) Multiple (2+) risk factors <130 (10-year risk=<20%) 0-1 risk factors <160 (<10-year risk) Defining levels of lipids in metabolic syndrome Triglycerides >=150 mg/dL HDL Cholesterol Men <40 mg/dL Women <40 mg/dL Non-HDL cholesterol is a second target for therapy in persons with high triglycerides (>=200 mg/dL) Specimen Plasma specimen Performing Organization Address [facility]/Zipcode Phone Number [facility] DEPARTMENT [address] [place] [address] PATHOLOGY AND GENOMIC MEDICINE * ECG 12 lead (10/14/2017 6:40 PM CDT) Only the most recent of 3 results within the time period is included. Ventricular 93 [facility] rate Atrial rate 93 [facility] MI interval 120 [facility] QRSD interval 92 [facility] QT interval 352 [facility] QTC interval 437 [facility] P axis 1 38 [facility] QRS axis 1 71 [facility] T wave axis 67 [facility] EKG impression Normal sinus rhythm-ST [facility] elevation, consider inferolateral injury or acute infarct-^^ ^^ ACUTE ND ^^ ^^-Abnormal ECG-In automated comparison with ECG of 14-OCT-2017 18:28,-No significant change was found- Specimen Performing Organization Address City/State/Zipcode Phone Number [facility] MUSE [address] [place] [address] * ECG ED Preliminary Interpretation - NOT AN ORDER (10/14/2017 6:39 PM CDT) Only the most recent of 2 results within the time period is included. Narrative Performed At Erme Galvan MD 10/15/20171:14 AM ECG ED Preliminary Interpretation - Not an Order Performed by: EMRE GALVAN Authorized by: EMRE GALVAN ECG reviewed by ED Physician in the absence of a electrical engineering drafting officer: yes Interpretation: Interpretation: non-specific Quality: Tracing quality:Limited by artifact Rate: ECG rate:93 ECG rate assessment: normal Rhythm: Rhythm: sinus rhythm QRS: QRS axis:Normal Conduction: Conduction: normal ST segments: ST segments:Non-specific Elevation:II, III, aVF, V5 and V6 Depression:V1, V2 and V3 T waves: T waves: non-specific Comments: Time of EK * CRITICAL CARE (10/14/2017 6:39 PM CDT) Narrative Performed At Emre Galvan MD 10/15/20171:14 AM Critical Care Performed by: EMRE GALVAN Authorized by: EMRE GALVAN Critical care provider statement: Critical care time (minutes):35 Critical care was necessary to treat or prevent imminent or life-threatening deterioration of the following conditions:Cardiac failure (STEMI) Critical care was time spent personally by me on the following activities:Blood draw for specimens, development of treatment plan with patient or surrogate, discussions with consultants, discussions with primary provider, evaluation of patient's response to treatment, examination of patient, interpretation of cardiac output measurements, obtaining history from patient or surrogate, review of old charts, re-evaluation of patient's condition, ordering and review of radiographic studies, ordering and review of laboratory studies and ordering and performing treatments and interventions Logan 'yes' if you are taking over critical care for this patient from another provider.: no * Surgical pathology request (10/12/2017 11:38 AM CDT) [facility] DEPARTMENT OF PATHOLOGY AND GENOMIC MEDICINE Surgical See link below for PDF Lab [facility] pathology Report DEPARTMENT OF report PATHOLOGY AND GENOMIC MEDICINE Result status This is Final Report to [facility] [id number] DEPARTMENT OF PATHOLOGY AND GENOMIC MEDICINE Specimen Performing Organization Address City/[facility] Phone Number [facility] DEPARTMENT OF [address] [place] [address] [place] [address] PATHOLOGY AND GENOMIC MEDICINE * XR Chest 2 Vw (10/09/2017 10:08 AM CDT) Specimen Narrative Performed At EXAMINATION:XR CHEST 2 VW [facility] CLINICAL HISTORY:Z01.818 Encounter for other preprocedural examination, preop COMPARISON:June 04, 2011 IMPRESSION: No acute abnormality 2 view chest The lungs are clear. The heart is not enlarged. Minimal vascular ectasia as compared to previous The bony structures are within normal limits. [id number] Procedure Note Hm Interface, Radiology Results Incoming - 10/09/2017 10:23 AM CDT EXAMINATION: XR CHEST 2 VW CLINICAL HISTORY: Z01.818 Encounter for other preprocedural examination, preop COMPARISON: June 04, 2011 IMPRESSION: No acute abnormality 2 view chest The lungs are clear. The heart is not enlarged. Minimal vascular ectasia as compared to previous The bony structures are within normal limits. [id number] Performing Organization Address City/[facility]/Zipcode Phone Number [facility] [address] [place] [address] * Urine Culture, Comprehensive (09/25/2017 3:16 PM CDT) Urine culture No growth in 36 - 48 hours. [facility] Specimen Narrative Performed At [facility]formed at: [facility] [address] [place], [place] [id number] Inclinometer Tester: Tito Guzman MD, Phone:[phone] Performing Organization Address City/State/Zipcode Phone Number [facility] * URINALYSIS, COMPLETE, WITH REFLEX TO CULTURE (09/25/2017 3:16 PM CDT) Specific 1.005 1.005 - 1.030 [facility] gravity, urine pH, urine 6.5 5.0 - 7.5 [facility] Color, UA Red (A) Yellow [facility] Appearance Clear Clear [facility] WBC esterase, 1+ (A) Negative [facility] urine Protein, UA 2+ (A) Negative/Trace [facility] Glucose, urine Negative Negative [facility] Ketones, UA Negative Negative [facility] Occult blood, 3+ (A) Negative [facility] urine Bilirubin, UA Negative Negative [facility] Urobilinogen, 0.2 0.2 - 1.0 mg/dL [facility] UA Nitrite, UA Negative Negative [facility] Microscopic See below:Comment: Microscopic [facility] examination was indicated and was performed. Urinalysis CommentComment: This specimen [facility] reflex has reflexed to a Urine Culture. Specimen Narrative Performed At Performed at:[address] [place], [place] [id number] Inclinometer Tester: Tito Guzman MD, Phone:[phone] Performing Organization Address [facility] Phone Number [facility] * Microscopic Examination (09/25/2017 3:16 PM CDT) WBC, UA 0-5 0 - 5 /hpf [facility] RBC, UA >30 (A) 0 - 2 /hpf [facility] Epithelial None seen 0 - 10 /hpf [facility] cells (non renal) Mucus, UA Present Not Estab. [facility] Bacteria, UA Few None seen/Few [facility] Specimen Narrative Performed At Performed at:[address] [place] [address] [id number] Inclinometer Tester: Tito Guzman MD, Phone:[phone] Performing Organization Address [facility] Phone Number [facility] * CT Renal Stone Protocol (09/07/2017 9:08 AM CDT) Specimen Narrative Performed At EXAMINATION:CT RENAL STONE PROTOCOL HM [facility] CLINICAL HISTORY:67 years Male R31.0 Gross hematuria, Flank pain or hematuria, Hematuria TECHNIQUE:Multiple axial images of the abdomen and pelvis were obtained without intravenous administration of iodinated contrast. Sagittal and coronal computerized reformatted images were also obtained. The lack of intravenous contrast reduces the sensitivity of detecting solid organ disease. CT imaging was performed with iterative reconstruction techniques and/or automated exposure control to reduce radiation dose. COMPARISON:None. Findings: The lung bases demonstrate bandlike linear opacity at the right lung base and to lesser extent left lung base with a nodular component probably related atelectasis. Follow-up to document stability is suggested. The liver and spleen appear normal in size. There are areas of low-attenuation within the liver largest of which measures approximately 14 mm in the left lobe these aren't not all are definitively characterized none demonstrates worrisome features and there are overall most consistent with small cysts. The adrenal glands demonstrate mild thickening of the left adrenal with no discrete nodule. The right adrenal appears normal. The gallbladder appears unremarkable. The pancreas appears unremarkable to the limits of visualization without contrast. The right kidney is not obstructed no definitive calculi are identified. There is a cyst along the lateral upper pole of the right kidney measuring 2.3 cm in maximum dimension The left kidney demonstrates a small cyst measuring approximately 13 mm in the upper pole medially. No obstruction is noted. However there is a worrisome mass in the area of the bladder toward the right measuring approximately 2.9 cm in diameter and tissue would be needed for further evaluation. The prostate is moderately enlarged. No abnormal lymph nodes are identified. No inflammatory changes are identified involving bowel. The appendix appears normal there is diffuse diverticulosis with no inflammatory changes identified. CT bone windows demonstrate degenerative changes of the lumbar spine and hips no lytic or blastic lesions are identified although a few scattered bone islands are noted IMPRESSION: 1. Approximately 3 cm bladder mass toward the right and follow-up to exclude malignant neoplasm will be needed. 2. Small bilateral renal cysts 3. Small cysts within the liver although not all are definitively characterized 4. Diverticulosis without inflammatory change. [id number] Procedure Note Hm Interface, Radiology Results Incoming - 09/07/2017 9:24 AM CDT EXAMINATION: CT RENAL STONE PROTOCOL CLINICAL HISTORY:67 years Male R31.0 Gross hematuria, Flank pain or hematuria, Hematuria TECHNIQUE: Multiple axial images of the abdomen and pelvis were obtained without intravenous administration of iodinated contrast. Sagittal and coronal computerized reformatted images were also obtained. The lack of intravenous contrast reduces the sensitivity of detecting solid organ disease. CT imaging was performed with iterative reconstruction techniques and/or automated exposure control to reduce radiation dose. COMPARISON: None. Findings: The lung bases demonstrate bandlike linear opacity at the right lung base and to lesser extent left lung base with a nodular component probably related atelectasis. Follow-up to document stability is suggested. The liver and spleen appear normal in size. There are areas of low-attenuation within the liver largest of which measures approximately 14 mm in the left lobe these aren't not all are definitively characterized none demonstrates worrisome features and there are overall most consistent with small cysts. The adrenal glands demonstrate mild thickening of the left adrenal with no discrete nodule. The right adrenal appears normal. The gallbladder appears unremarkable. The pancreas appears unremarkable to the limits of visualization without contrast. The right kidney is not obstructed no definitive calculi are identified. There is a cyst along the lateral upper pole of the right kidney measuring 2.3 cm in maximum dimension The left kidney demonstrates a small cyst measuring approximately 13 mm in the upper pole medially. No obstruction is noted. However there is a worrisome mass in the area of the bladder toward the right measuring approximately 2.9 cm in diameter and tissue would be needed for further evaluation. The prostate is moderately enlarged. No abnormal lymph nodes are identified. No inflammatory changes are identified involving bowel. The appendix appears normal there is diffuse diverticulosis with no inflammatory changes identified. CT bone windows demonstrate degenerative changes of the lumbar spine and hips no lytic or blastic lesions are identified although a few scattered bone islands are noted IMPRESSION: 1. Approximately 3 cm bladder mass toward the right and follow-up to exclude malignant neoplasm will be needed. 2. Small bilateral renal cysts 3. Small cysts within the liver although not all are definitively characterized 4. Diverticulosis without inflammatory change. [id number] Performing Organization Address [facility]/[employer] Phone Number [facility] [address] [place] [address] * TSH reflex to T4 (08/29/2017 7:49 AM CDT) TSH reflex to 2.38 0.40 - 4.50 mIU/L [employer] [facility] [place] Specimen Blood Narrative Performed At FASTING:YES [facility] FASTING: YES Resulting Agency Comment Performing Organization Information: Site ID: [id number] Name: [facility] Address: [address] [place] [id number] Director: Farzana Lazaro Performing Organization Address City/[facility]/[employer] Phone Number [employer] [address] [phone] * Testosterone level, free and total, male (08/29/2017 7:49 AM CDT) Testosterone, 928 250 - 1,100 ng/dL [facility] total, lc/ms/ms Comment: DIAGNOSTICS Males: Men with clinically NARANJO significant hypogonadal MEDINA symptoms and testosterone values repeatedly in the range of the 200-300 ng/dL or less, may benefit from testosterone treatment after adequate risk and benefits counseling. Testosterone, 67.8 35.0 - 155.0 pg/mL [facility] free Comment: DIAGNOSTICS This test was developed and NARANJO its analytical performance MEDINA characteristics have been determined by [facility]. It has not been cleared or approved by the [place] Food and Drug Administration. This assay has been validated pursuant to the CLIA regulations and is used for clinical purposes. Specimen Narrative Performed At FASTING:YES [facility] FASTING: YES Resulting Agency Comment Performing Organization Information: Site ID: [id number]: [facility] Address: [address] [place] [id number] Director: Calvin Stinson M.D., Ph.D Performing Organization Address City/[facility]/[employer] Phone Number [employer] [address] [phone] [place] * Prostate specific antigen (08/29/2017 7:49 AM CDT) Pathologist [facility] PSA 1.9 < OR=4.0 ng/mL [facility] Comment: DIAGNOSTICS The total PSA value from this [place] assay system is standardized against the WHO standard. The test result will be approximately 20% lower when compared to the equimolar-standardized total PSA (Cesar Kaiden). Comparison of serial PSA results should be interpreted with this fact in mind. This test was performed using the Siemens chemiluminescent method. Values obtained from different assay methods cannot be used interchangeably. PSA levels, regardless of value, should not be interpreted as absolute evidence of the presence or absence of disease. Specimen Narrative Performed At FASTING:YES [facility] FASTING: YES Resulting Agency Comment Performing Organization Information: Site ID: [id number] Name: [facility] Address: [address] [place] [address] Director: Farzana Lazaro Performing Organization Address City/[facility]/Zipcode Phone Number [employer] [address] [address] after 08/27/2017 Insurance Type Payer Benefit Subscriber ID Effective Phone Address Plan / Dates Group HMO [employer] xxxxxxxxx [id number] TEODORA gallo Advance Directives Patient has advance care planning documents, and code status on file. For more i nformation, please contact: Mauri Larson [address] [place] [address] Date Inactivated Comments Code Status Date Activated 10/16/2017 7:19 PM Full Code 10/14/2017 9:13 PM Code Status decision reached by: Patient
--- NOTE | 2018-08-28 13:56 | Diagnostic Imaging Report ---
Exam: Right forearm 2 views History: Fall 4 days ago, pain Comparison: None. Findings: No acute, displaced fracture or dislocation. Visualized joint spaces are well-maintained. Soft tissues are unremarkable. Impression: No acute osseous abnormality. Signed by: Dr. Jose D Rehman M.D. on 08/28/2018 1:52 PM
== END 2018-08-28 15:02 | disposition home or self-care (01) ==
LOC: FSED 13:25
DX: S50.11XA Contusion of right forearm, initial encounter (principal); W01.0XXA Fall on same level from slipping, tripping and stumbling without subsequent striking against object, initial encounter; Y92.008 Other place in unspecified non-institutional (private) residence as the place of occurrence of the external cause; I25.10 Atherosclerotic heart disease of native coronary artery without angina pectoris; I25.2 Old myocardial infarction; Z86.12 Personal history of poliomyelitis
CPT/HCPCS: 99283

== ENCOUNTER 2023-02-01 08:37 | Inpatient (IN) | payer MEDICARE ==
[~2023-02-01] VITALS: Ht 175.3 cm; Wt 83.5 kg
[2023-02-01] MEDS ORDERED: METOPROLOL TART25 MG PO (09:04)
[2023-02-01] MEDS ORDERED: AMLODIPINE BESY10 MG PO (09:04)
[2023-02-01] MEDS ORDERED: BRILINTA90 MG (09:04)
[2023-02-01] MEDS ORDERED: ASPIRIN EC81 MG PO (09:04)
[2023-02-01] MEDS ORDERED: ATORVASTATIN CA20 MG PO (09:04)
[2023-02-01] MEDS ORDERED: ASPIRIN 81 MG CHEW TAB ONE (09:13)
[2023-02-01] MEDS ORDERED: ACETAMINOPHEN 325 MG TAB ONE (09:14)
[2023-02-01] MEDS ORDERED: NITROGLYCERIN 2% OINT 1 GM PKT ONE (09:14)
[2023-02-01] MEDS ORDERED: FUROSEMIDE INJ 10 MG/ML 4 ML VIAL ONE (09:14)
[2023-02-01] MEDS ORDERED: ASPIRIN 81 MG CHEW TAB PO ONE (09:15)
[2023-02-01] MEDS ORDERED: ACETAMINOPHEN 325 MG TAB PO ONE (09:15)
[2023-02-01] MEDS ORDERED: FUROSEMIDE INJ 10 MG/ML 4 ML VIAL IV ONE (09:15)
[2023-02-01] MEDS ORDERED: NITROGLYCERIN 2% OINT 1 GM PKT TOP ONE (09:15)
[2023-02-01] MEDS ORDERED: IPRATROPIUM BROMIDE 0.02% 2.5 ML NEB NEB STA (10:04)
[2023-02-01] MEDS ORDERED: ALBUTEROL SULF 0.083% NEB SOLN 3 ML NEB NEB STA (10:04)
[2023-02-01] MEDS ORDERED: METHYLPREDNISOLONE SOD SUCC 125 MG/2ML VIAL IV ONE (10:15)
[2023-02-01] MEDS ORDERED: LEVOFLOXACIN 750MG/D5W 150ML 150 ML IV ONE ×2 (10:15→10:49)
[2023-02-01] MEDS ORDERED: ACETAMINOPHEN 325 MG TAB PO PRN (10:15)
[2023-02-01] MEDS ORDERED: ZOLPIDEM TARTRATE 5 MG TAB PO PRN (10:15)
[2023-02-01] MEDS ORDERED: SODIUM CHLORIDE FLUSH 10 ML SYR INJ PRN (10:15)
[2023-02-01] MEDS ORDERED: ENALAPRILAT IV INJ 1.25 MG/ML VIAL IV PRN (10:15)
[2023-02-01] MEDS ORDERED: DIPHENHYDRAMINE HCL INJ 50 MG/ML VIAL IV PRN (10:15)
[2023-02-01] MEDS ORDERED: DEXAMETHASONE SOD PHOS INJ 4 MG/ML SDV IV ONE (10:45)
[2023-02-01] MEDS ORDERED: IPRATROPIUM BROMIDE 0.02% 2.5 ML NEB ONE (10:48)
[2023-02-01] MEDS ORDERED: ALBUTEROL SULF 0.083% NEB SOLN 3 ML NEB ONE (10:49)
[2023-02-01] MEDS: FAMOTIDINE 20 MG TAB PO SCH ×3 (11:02→21:03)
[2023-02-01 12:33] VITALS: BP 113/66; PULSE 78; RESP 18; TEMP 98.1; O2SAT 96
[2023-02-01 13:00] VITALS: PULSE 82; RESP 18; O2SAT 96
[2023-02-01] MEDS: ALBUTEROL/IPRATROPIUM 3 ML NEB NEB SCH ×2 (13:01→19:39)
[2023-02-01 14:53] LABS: CREATINE KINASE 88 IU/L (30-200)
[2023-02-01] MEDS ORDERED: IOPAMIDOL 370 MG/ML 100 ML INFUS..BTL INJ ONE (15:46)
[2023-02-01 16:01] VITALS: BP 114/67; PULSE 77; RESP 20; TEMP 98.5; O2SAT 99
[2023-02-01 19:37] VITALS: PULSE 74; RESP 18; O2SAT 96
[2023-02-01 20:31] VITALS: BP 109/66; PULSE 74; RESP 16; TEMP 97.4; O2SAT 100
[2023-02-01] MEDS: SIMVASTATIN 20 MG TAB PO SCH (21:00)
[2023-02-01] MEDS: METOPROLOL TARTRATE 25 MG TAB PO SCH ×2 (21:01→22:15)
[2023-02-01 22:33] VITALS: BP 109/66; PULSE 74; RESP 16; TEMP 97.4; O2SAT 100
[2023-02-02] VITALS (9 sets, daily range): BP systolic 109–118; BP diastolic 6–64; PULSE 61–76; RESP 16–19; TEMP 97.7–98.3; O2SAT 93–98
[2023-02-02] MEDS: ALBUTEROL/IPRATROPIUM 3 ML NEB NEB SCH ×4 (01:00→19:39)
[2023-02-02 05:58] LABS: BASOPHILS % 0.1 % (0.0-1.0); HEMATOCRIT 35.2 % (38.2-49.6); HEMOGLOBIN 12.6 g/dL (14.0-18.0); LYMPHOCYTES # (AUTO) 1.1 (1.0-3.2); LYMPHOCYTES % 9.5 % (18.0-39.1); MEAN CORPUSCULAR HEMOGLOBIN 31.9 pg (28-32); MEAN CORPUSCULAR HGB CONC 35.8 g/dL (31-35); MEAN CORPUSCULAR VOLUME 89.1 fL (81-99); MONOCYTES % 7.9 % (4.4-11.3); NEUTROPHILS # (AUTO) 9.9 (2.1-6.9); NEUTROPHILS % 81.8 % (38.7-80.0); PLATELET COUNT 250 x10e3/uL (140-360); RED BLOOD COUNT 3.95 x10e6/uL (4.3-5.7); WHITE BLOOD COUNT 12.04 x10e3/uL (4.8-10.8)
[2023-02-02 06:26] LABS: ANION GAP 12.3 mmol/L (8-16); CALCIUM 8.5 mg/dL (8.4-10.2); CREATININE, SERUM 1.1 mg/dL (0.72-1.25); POTASSIUM 3.3 mmol/L (3.5-5.1)
[2023-02-02 06:44] LABS: CREATINE KINASE 63 IU/L (30-200)
[2023-02-02] MEDS: LISINOPRIL 10 MG TAB PO SCH ×2 (09:00→09:38)
[2023-02-02] MEDS: ASPIRIN 325 MG TAB EC PO SCH (09:37)
[2023-02-02] MEDS: METOPROLOL TARTRATE 25 MG TAB PO SCH ×3 (09:37→20:40)
[2023-02-02] MEDS: FAMOTIDINE 20 MG TAB PO SCH ×3 (09:37→22:13)
[2023-02-02] MEDS: NICOTINE 14 MG/EA PATCH TOP SCH (09:38)
[2023-02-02] MEDS ORDERED: POTASSIUM CHLORIDE 10MEQ EA PO ONE (10:45)
[2023-02-02] MEDS: ATORVASTATIN 40 MG TAB PO SCH (20:39)
[2023-02-02] MEDS: SIMVASTATIN 20 MG TAB PO SCH (21:00)
[2023-02-03] VITALS (8 sets, daily range): BP systolic 116–125; BP diastolic 56–62; PULSE 61–90; RESP 16–19; TEMP 98–98.2; O2SAT 95–100
[2023-02-03] MEDS: ALBUTEROL/IPRATROPIUM 3 ML NEB NEB SCH ×4 (01:00→19:25)
[2023-02-03] MEDS: NICOTINE 14 MG/EA PATCH TOP SCH (09:32)
[2023-02-03] MEDS: FAMOTIDINE 20 MG TAB PO SCH ×2 (09:32→21:11)
[2023-02-03] MEDS: ASPIRIN 325 MG TAB EC PO SCH (09:32)
[2023-02-03] MEDS: LISINOPRIL 10 MG TAB PO SCH (09:33)
[2023-02-03] MEDS: METOPROLOL TARTRATE 25 MG TAB PO SCH ×2 (09:33→21:08)
[2023-02-03] MEDS: TICAGRELOR 90 MG TABLET PO SCH (09:33)
[2023-02-03] MEDS: METHYLPREDNISOLONE SOD SUCC 40 MG/ML VIAL 1ML IV SCH ×2 (13:08→21:07)
[2023-02-03] MEDS: ENOXAPARIN SOD INJ 40 MG/0.4 ML SYR SC SCH (16:48)
[2023-02-03] MEDS: SIMVASTATIN 20 MG TAB PO SCH (21:00)
[2023-02-03] MEDS: ATORVASTATIN 40 MG TAB PO SCH (21:08)
[2023-02-04] VITALS (11 sets, daily range): BP systolic 116–124; BP diastolic 52–90; PULSE 61–84; RESP 16–20; TEMP 97.6–98.4; O2SAT 94–100
[2023-02-04] MEDS: ALBUTEROL/IPRATROPIUM 3 ML NEB NEB SCH ×4 (01:00→19:18)
[2023-02-04 05:05] LABS: BASOPHILS % 0.2 % (0.0-1.0); HEMATOCRIT 35.5 % (38.2-49.6); HEMOGLOBIN 12.6 g/dL (14.0-18.0); LYMPHOCYTES # (AUTO) 1.1 (1.0-3.2); LYMPHOCYTES % 8.3 % (18.0-39.1); MEAN CORPUSCULAR HEMOGLOBIN 31.7 pg (28-32); MEAN CORPUSCULAR HGB CONC 35.5 g/dL (31-35); MEAN CORPUSCULAR VOLUME 89.4 fL (81-99); MONOCYTES # (AUTO) 0.1 (0.2-0.8); NEUTROPHILS # (AUTO) 11.9 (2.1-6.9); NEUTROPHILS % 89.9 % (38.7-80.0); PLATELET COUNT 303 x10e3/uL (140-360); RED BLOOD COUNT 3.97 x10e6/uL (4.3-5.7); RED CELL DISTRIBUTION WIDTH 14.2 % (11.7-14.4); WHITE BLOOD COUNT 13.18 x10e3/uL (4.8-10.8)
[2023-02-04 05:45] LABS: CALCIUM 8.6 mg/dL (8.4-10.2); CREATININE, SERUM 0.85 mg/dL (0.72-1.25)
[2023-02-04] MEDS: METHYLPREDNISOLONE SOD SUCC 40 MG/ML VIAL 1ML IV SCH ×2 (12:12→21:10)
[2023-02-04] MEDS: NICOTINE 14 MG/EA PATCH TOP SCH (12:13)
[2023-02-04] MEDS: TICAGRELOR 90 MG TABLET PO SCH (12:15)
[2023-02-04] MEDS: METOPROLOL TARTRATE 25 MG TAB PO SCH ×2 (12:15→21:12)
[2023-02-04] MEDS: LISINOPRIL 10 MG TAB PO SCH (12:15)
[2023-02-04] MEDS: ASPIRIN 325 MG TAB EC PO SCH (12:16)
[2023-02-04] MEDS: FAMOTIDINE 20 MG TAB PO SCH ×2 (12:16→21:13)
[2023-02-04] MEDS: ENOXAPARIN SOD INJ 40 MG/0.4 ML SYR SC SCH (17:32)
[2023-02-04] MEDS: SIMVASTATIN 20 MG TAB PO SCH (21:00)
[2023-02-04] MEDS: ATORVASTATIN 40 MG TAB PO SCH (21:11)
[2023-02-05] VITALS (8 sets, daily range): BP systolic 118–144; BP diastolic 60–71; PULSE 63–85; RESP 18–20; TEMP 97.3–97.9; O2SAT 96–99
[2023-02-05] MEDS: ALBUTEROL/IPRATROPIUM 3 ML NEB NEB SCH ×3 (07:06→12:40)
[2023-02-05] MEDS: ASPIRIN 325 MG TAB EC PO SCH (09:59)
[2023-02-05] MEDS: NICOTINE 14 MG/EA PATCH TOP SCH (10:00)
[2023-02-05] MEDS: METOPROLOL TARTRATE 25 MG TAB PO SCH (10:00)
[2023-02-05] MEDS: FAMOTIDINE 20 MG TAB PO SCH (10:01)
[2023-02-05] MEDS: TICAGRELOR 90 MG TABLET PO SCH (10:01)
[2023-02-05] MEDS: LISINOPRIL 10 MG TAB PO SCH (10:01)
[2023-02-05] MEDS: METHYLPREDNISOLONE SOD SUCC 40 MG/ML VIAL 1ML IV SCH (10:02)
[2023-02-05] MEDS ORDERED: AZITHROMYCIN 250 MG TAB PO SCH (13:00)
== END 2023-02-05 13:24 | disposition home or self-care (01) | DRG 194 ==
LOC: FSED 08:58 → ERHOLD 10:18 → MED/SURG2 11:51 → OBSVTOIN 02-03 08:21
PROVIDERS: ADMIT Internal Medicine; ATTEND Internal Medicine
DX: J18.9 Pneumonia, unspecified organism (principal); J44.0 Chronic obstructive pulmonary disease with (acute) lower respiratory infection; J44.1 Chronic obstructive pulmonary disease with (acute) exacerbation; J20.9 Acute bronchitis, unspecified; I25.10 Atherosclerotic heart disease of native coronary artery without angina pectoris; I11.0 Hypertensive heart disease with heart failure; I50.9 Heart failure, unspecified; R09.02 Hypoxemia; F17.200 Nicotine dependence, unspecified, uncomplicated; R06.00 Dyspnea, unspecified; Z95.5 Presence of coronary angioplasty implant and graft; Z86.16 Personal history of COVID-19; Z85.51 Personal history of malignant neoplasm of bladder
CPT/HCPCS: 0223U; 36415; 71046; 71260; 80048; 80053; 82550; 82553; 83880; 84484; 85025; 85379; 87040; 87400; 93005; 93306; 94799; 96374; 99284; G0378; J0696; J1100; J1650; J1940; J2920; J7050; Q9967